=== PATIENT | female | born 1995 | race Caucasian/White ===

== ENCOUNTER → 2016-11-26 | Outpatient (REF) | payer BC | LOC: M SFHCLERA 16:10 | PROVIDERS: ATTEND Nurse Practitioner Family | DX: Z32.00 Encounter for pregnancy test, result unknown (principal) ==

== ENCOUNTER → 2022-09-26 | Outpatient (REF) | payer SELFPAY | LOC: M LAB REF 10:54 | PROVIDERS: ATTEND Obstetrics & Gynecology Obstetrics | DX: Z79.899 Other long term (current) drug therapy (principal) ==